=== PATIENT | female | born 1950 | race Caucasian/White ===

== ENCOUNTER → 2016-12-11 | Outpatient (CLI) | payer MEDICARE, MEDICAID | END | disposition disaster alternative care site (69) | LOC: GAMB 10:19 | DX: I20.9 Angina pectoris, unspecified (principal); I25.9 Chronic ischemic heart disease, unspecified; R07.89 Other chest pain; Z79.82 Long term (current) use of aspirin; Z79.899 Other long term (current) drug therapy; Z88.1 Allergy status to other antibiotic agents | CPT/HCPCS: A0422; A0425; A0427 ==

== ENCOUNTER → 2017-03-14 | Outpatient (CLI) | payer MEDICARE, MEDICAID ==
--- NOTE | ~2017-03-14 | PUL ---
PATIENT'S NAME: CARLOS BLAS [facility] AGE: 66 Y [address] ROOM: [place] [address] LOCATION: [facility] ADMIT DATE: 03/14/2017 Pulmonary DISCHARGE DATE: FAMILY PHYSICIAN: Tristin Willard MD ATTENDING PHYSICIAN: Tristin Willard NAME OF PROCEDURE: Sleep study PROCEDURE DATE: 03/14/17 TECH: Lacie Talley, DARKROOM TECHNICIAN TEST #: [facility] [place] [id number] TECHNICAL PARAMETERS: The patient was studied using International 10/20 measuring system. While the patient was studied, there was continuous monitoring of EEG (8 leads), EOG (2 leads), EKG (3 leads), submental EMG (3 leads), tibial (4 leads), respiratory inductive plethysmography (RIP) for thoracic and abdominal effort, oral and nasal airflow with a thermocouple and pressure transducer, and oximetry. The nanotechnician also performed visual and auditory observations noting things like body position, patient's status, breath sounds, artifact, snoring level and patient comments. Continuous sound was monitored using a 2-way speaker system and video monitoring was performed using an infrared camera. Review of the entire study was performed epoch by epoch utilizing a single epoch and multiple epoch capability sleep system. MEDICAL HISTORY: Patient is a 66-year-old overweight woman with daytime sleepiness and snoring. SLEEP STAGE SUMMARY: The patient was studied for 462 minutes of which she slept 434 minutes. She fell asleep in 15 minutes and slept for 94% of the night. Sleep architecture revealed a decline in slow wave sleep. RESPIRATORY SUMMARY: This study was done to titrate CPAP which was started at 6 cm and titrated to 12 cm with good control of the respiratory events. EKG SUMMARY: Average heart rate 51 beats per minute. LIMB MOVEMENT SUMMARY: Limb movements were present early in the study but resolved with control of the sleep apnea. SUMMARY: Obstructive sleep apnea responsive to CPAP at 12 cm. PLAN: Suggest CPAP 12 cm. PATIENT'S NAME: CARLOS BLAS [facility] AGE: 66 Y [address] ROOM: [place] [address] LOCATION: [facility] ADMIT DATE: 03/14/2017 Pulmonary DISCHARGE DATE: FAMILY PHYSICIAN: Tristin Willard MD ATTENDING PHYSICIAN: Tristin Willard MD David ALEMAN /[id number] dtt: 03/27/17 1010 , Charlie Kirk dtd: 03/16/17 1023
== END | disposition disaster alternative care site (69) ==
LOC: GSLP 20:11
DX: G47.33 Obstructive sleep apnea (adult) (pediatric) (principal)